=== PATIENT | female | born 1980 | race Caucasian/White ===

== ENCOUNTER 2017-02-16 10:12 | Emergency (ER) | payer SELFPAY ==
--- NOTE | 2017-03-18 17:09 | ER ---
ADMIT: 02/16/2017 RM/LOC: ER [facility] MR#: [id number] [address] [id number] [address] [facility] [place] [address] Emergency Room Report SEX: F AGE: 36 : 1980 DATE: 02/16/2017 ADDENDUM: CHIEF COMPLAINT: Right knee pain. HISTORY OF PRESENT ILLNESS: This is a 36-year-old, who was going down her friend's stairs a couple days ago. She twisted her knee and fell down. She has not been able to bear weight except to go to the bathroom for the last 2 days. She has been using a walker to help her out. Today, she finally can bear a little bit of weight on it, but it is still very painful. X-ray was done, negative for any fracture, over-read by Dr. Cook. CLINICAL IMPRESSION: Right knee sprain. DISPOSITION: Sent her home with a knee immobilizer, having her ice, elevate, use Tylenol or Motrin for pain. Activity as tolerated. Follow up with primary care physician if pain continues to worsen. MARCIE Torres / Micha Cook MD / bebe JOB #: [id number] CC: Micha Cook MD, Attending Physician Emmanuel Morrison MD, Family Physician
== END 2017-02-16 13:30 | disposition home or self-care (01) ==
LOC: ER 10:12
PROC: 2W3LX1Z Immobilization of Right Lower Extremity using Splint (ICD-10-PCS; principal; 2017-02-16)
DX: S83.91XA Sprain of unspecified site of right knee, initial encounter (principal); F17.210 Nicotine dependence, cigarettes, uncomplicated; X50.1XXA Overexertion from prolonged static or awkward postures, initial encounter; Y92.009 Unspecified place in unspecified non-institutional (private) residence as the place of occurrence of the external cause